=== PATIENT | male | born 1945 | race Caucasian/White ===

== ENCOUNTER → 2017-04-30 | Outpatient (CLI) | payer OTHER, BC ==
[~2017-04-30] MED LIST: CIPR-255 PO; CLC100 PO; DTR5 PO; FINA5TAB PO; MULT-845 PO; OXYC5TAB PO; POTATAB2 PO; SIMV20TA2 PO
--- NOTE | 2017-04-30 14:06 | DIAGNOSTIC IMAGING REPORT ---
[facility]UB CLINICAL HISTORY: Benign prostatic hypertrophy. History of nephrolithiasis. COMPARISON STUDY: KUB August 08, 2015. FINDINGS: The bowel gas pattern is normal. No urinary calculi are identified. There are old right rib fractures and a right lower quadrant surgical staple line. A few left inferior pelvic calcifications are likely reflect urinary calculi. IMPRESSION: No urinary calculi identified. Electronically signed by: Froilan Johnson M.D. 04/30/2017 2:05 PM Dictated Date/Time: 04/30/2017 2:03 PM
[2017-04-30 15:03] LABS: BLOOD UREA NITROGEN 16 mg/dl (7-18); BUN/CREATININE RATIO 16.4 (10-20); CALCIUM 9.2 mg/dl (8.5-10.1); CARBON DIOXIDE 32 mmol/L (21-32); CHLORIDE 102 mmol/L (98-107); CREATININE 0.96 mg/dl (0.60-1.40); GLUCOSE 92 mg/dl (70-99); POTASSIUM 4.1 mmol/L (3.5-5.1); SODIUM 139 mmol/L (136-145)
[2017-04-30 15:08] LABS: PROSTATE SPECIFIC ANTIGEN 0.524 ng/ml (0.000-4.000)
== END | disposition home or self-care (01) ==
LOC: C.RAD 12:05
PROVIDERS: ATTEND Urology
DX: N20.0 Calculus of kidney (principal); N40.1 Benign prostatic hyperplasia with lower urinary tract symptoms